=== PATIENT | female | born 1995 | race African-American/Black ===

== ENCOUNTER 2016-06-07 10:54 | Emergency (ER) | payer OTHER ==
--- NOTE | ~2016-06-07 | US61 ---
[facility] A Service of [facility] RADIOLOGY TEXT RESULTS PATIENT: CONNIE GREY LOCATION: CFTX : 95 UNIT #: [id number] AGE: [address]: Gabriela Mtz SEX: F ORDER DR: [id number] [facility] [address] [place], [place] [address] [id number] E MR#: [id number] Acc #: [id number] NAME: CONNIE GREY : 1995 SEX: F STUDY DATE/TIME: 06/07/2016 12:40 UNIT: [facility] ROOM: STUDY DESCRIPTION: US /Mat <14Wk / Attending Physician: Gabriela Mtz P.A.-C. Ordering Physician: Gabriela Mtz P.A.-C. Primary Care Physician: Eboni Tovar M.D. MEDICAL IMAGING REPORT This report is preliminary unless electronic signature is present EXAM ultrasound. DATE 06/07/2016 HISTORY . Pelvic pressure intermittently for 3 days. Quantitative beta hCG still pending at this time. COMPARISON Transvaginal pelvic ultrasound 08/17/2011. FINDINGS Transabdominal imaging was performed. The uterus measures approximately 11.0 x 6.6 x 7.6 cm. Single intrauterine is demonstrated with a crown-rump length of approximately 4.2 cm. There is a detectable heart rate in the range of 162 beats per minute. The placenta appears to be in an anterior line. No subchorionic hemorrhage is seen. The left ovary measures 3.9 x 3.8 x 3.4 cm and contains a single simple cyst measuring 2.3 x 2.4 x 2.7 cm. The left ovary demonstrates normal color and spectral Doppler flow. The right ovary measures 4.5 x 2.5 x 2.2 cm without cystic or solid abnormality and the right ovary demonstrates normal color and spectral Doppler flow. IMPRESSION 1. Single viable intrauterine with heart rate in the range of 162 beats per minute. Estimated sonographic gestational age 11 weeks [facility] A Service of [facility] RADIOLOGY TEXT RESULTS PATIENT: CONNIE GREY LOCATION: [facility] : 95 UNIT #: [id number] AGE: [address]: Gabriela Mtz SEX: F ORDER DR: 1 day with estimated date of delivery 12/26/2016. 2. No acute pelvic findings. 3. Simple left ovarian cyst measuring 2.7 cm. 4. Normal flow was documented to each ovary. 5. No pelvic free fluid. Dictated by... Kari Upton M.D. THIS IS AN ELECTRONICALLY VERIFIED REPORT Kari Upton M.D. at 06/08/2016 7:[address] [facility]/[place] TD: 06/07/2016 13:59 JOB #: [id number] MEDICAL IMAGING REPORT Page 1 of 1 COPY
--- NOTE | ~2016-06-07 | EKG ---
PATIENT: CONNIE GREY UNIT #: [id number] Ventricular Rate: 66 BPM Atrial Rate: 66 BPM P-R Interval: 172 ms QRS Duration: 76 ms Q-T Interval: 372 ms QTC Calculation(Bezet): 389 ms P Kinsman: 42 degrees Calculated R Kinsman: 47 degrees Calculated T Kinsman: 46 degrees Diagnosis Line: Normal sinus rhythm with sinus arrhythmia Diagnosis Line: Normal ECG Diagnosis Line: When compared with ECG of 17-JAN-2016 21:00, Diagnosis Line: No significant change was found Diagnosis Line: Confirmed by DORIAN EDMONDSON MD ([id number]) on 06/08/2016 Diagnosis Line: 4:51:17 AM INTERPRETING MD: DEBO HSIEH
[~2016-06-07 10:54] MED LIST: LORTAB 5/500 TA1 TA1 PO; MOTRIN600 M1 PO
[2016-06-07 11:36] LABS: URINE SOURCE CLEAN CATCH
[2016-06-07 11:47] LABS: URINE APPEARANCE CLEAR; URINE BILIRUBIN NEG (NEG); URINE BLOOD NEG (NEG); URINE COLOR YELLOW; URINE GLUCOSE 100 MG/DL (NEG); URINE KETONE NEG (NEG); URINE LEUKOCYTE ESTERASE NEG (NEG); URINE NITRATE NEG (NEG); URINE PROTEIN NEG (NEG)
[2016-06-07 11:52] LABS: CULTURE INDICATED? NO
[2016-06-08 23:31] LABS: CHLAMYDIA TRACH Not Detected (Not Detected); N GONOR Not Detected (Not Detected)
== END 2016-06-07 13:30 | disposition home or self-care (01) ==
LOC: CFTX 10:54
PROVIDERS: Physician Assistant
DX: O99.89 Other specified diseases and conditions complicating pregnancy, childbirth and the puerperium (principal); R10.2 Pelvic and perineal pain; F41.9 Anxiety disorder, unspecified; Z3A.12 12 weeks gestation of pregnancy
CPT/HCPCS: 36415; 76801; 81003; 84702; 84703; 87491; 87591; 87808; 87905; 93005; 99284